=== PATIENT | male | born 1950 | race Caucasian/White ===

== ENCOUNTER 2016-08-05 15:30 | Outpatient (RCR) ==
--- NOTE | 2016-07-28 14:12 | RS.OPPTEV2 ---
Date of Note: 07/28/16 Visit #: 1 Date of Evaluation: 07/28/16 Payer Source: MEDICARE Treatment Diagnosis: Neck pain, muscle spasms History of Condition/Mechanism of Injury:: Patient reports onset of left sided neck pain around the first week of June 2016. States he does not know of any injury that would have started his symptoms. Prior Level of Function.....Patient was independent with: ADL's, Self Care, Work /Vocation, Caregiving, Ambulation/Mobility, Community Integration/Access Functional Limitations: Reaching, Pushing, Pulling, Lifting, Carrying Current Subjective/complaints:: Reports left sided neck pain and muscle spasms. States he has had pain for approximately a month. He denies tingling or numbness into the left UE, but states he does get pain towards the left shoulder. Patient states he is right handed. He plays the guitar and muro guitar, and states the strap on his left shoulder bothers him. States he sometimes plays in "[employer] sessions" for 1 1/2 to 2 hours. States he works at [employer] in the [employer], which requires a variety of activities and duties. States pain is usually worse after working. Treatment Side (optional): Left Medical History Medical History: Hypertension Smoking Status: Never smoker Hx Home Medications: Muscle relaxant at night, generic for plavix,lisinopril, simvastatin, generic for Prilosec Patient's Goals: His goal is to get relief of muscle spasms and pain. Pain Assessment - Pain Description Pain Location: left side of neck/upper traps Current Pain Intensity: 2/10 Worst Pain Intensity: 9/10 Functional Outcome Measure Neck Disability Index: 16 - G Codes & Severity Modifier G Codes & Modifier: body position current CI. body position goal CH Source of G Code score: Neck Disability index Observation - Observation Posture: Forward Head, Rounded Shoulders, Scapula Asymmetry (left scapula elevated) Comments: Demonstrates head tilted to the left at rest. Handedness: Right - ROM Comments: Cervical AROM is WFL's in all directions. Patient reports rotation to the left increases left sided neck pain. Rotation to the right eases his pain. States prolonged neck flexion causes increased pain. Demonstrates bilateral UE AROM WFL's. - Strength Comments: 5/5 throughout bilateral UE's. Fabrication Mig Welder Strength Left Hand Fabrication Mig Welder Strength: 79 lbs. Right Hand Fabrication Mig Welder Strength: 72 lbs. Dynamometer Testing Position: 2nd Position Palpation Comments:: Patient demonstrates marked muscle guarding along the left upper traps. Minimal to moderate muscle guarding along bilateral cervical paraspinals. Exhibits minimal to moderate muscle guarding along the left middle traps, along the medial border of the scapula. Reports no significant tenderness with moderate pressure throughout the cervical paraspinals or upper traps. Sensation - Sensation Right Upper Extremity: Intact/Normal Left Upper Extremity: Intact/Normal Interventions - Exercise/Activities/Manual Therapy Exercises/Activities: Patient instructed in stretching into cervical rotation and lateral flexion, and scapular retraction and depression for HEP. Manual Therapy: DTM to left upper traps, middle traps, and cervical paraspinals X 14 mins to reduce muscle tone. HOME EXERCISE PROGRAM: stretching into cervical rotation and lateral flexion, and scapular retraction and depression - Charges Total Direct Minutes: 55 mins Total Treatment Time: 55 mins Procedures billed for this date of service:: ТАТЬЯНА [place], manual therapy Assessment Assessment: Patient presents to therapy with a diagnosis of cervicalgia and trapezium muscle spasm. He exhibits marked muscle guarding along the left upper traps and increased tone along the cervical paraspinals and middle traps. He reports pain with activities at work and with playing his guitar or muro. He will benefit from modalities and manual therapy to reduce his muscle spasms/ guarding and stretching and postural exercises to reduce his pain with activities. Patient Education: Education of diagnosis, Body/Joint mechanics, Home Exercise Program, Education of Plan of Care Rehab Potential: Good Short Term Goals Goal #1: Patient independent in basic HEP. Goal to be met by: 08/11/16 Goal #2: Muscle guarding at left upper traps decreased to minimal. Goal to be met by: 08/11/16 Goal #3: Cervical AROM WFL's with minimal to no pain. Goal to be met by: 08/11/16 Production Supply Equipment Tender Goals Goal #1: Patient knows HEP and to continue ex's to maintain functional level at D/C. Goal to be met by: 09/01/16 Goal #2: Score on Neck Disability index improved to 0. Goal to be met by: 09/01/16 Goal #3: Pt to perform all work and recreational activities with minimal neck pain. Goal to be met by: 09/01/16 Goal #4: Pt to demonstrate good postural awareness. Goal to be met by: 09/01/16 Plan - Treatment to be Provided Procedures: Therapeutic Exercises, Therapeutic Activity, Manual Therapy, Patient Education Modalities: Electrical Stimulation, Ultrasound/Phonophoresis, Cryotherapy, Hot Packs, Mechanical Traction (Cervical) - Treatment Plan Frequency: 2 X week Duration: 4 weeks ORDER # VISITS AND/OR THROUGH DATE: 09/01/16 - Treatment Code (1) Cervicalgia Comments: M54.2 (2) Trapezius muscle spasm Comments: M62.838
--- NOTE | 2016-07-31 16:36 | RS.OPPTDN ---
Subjective Date of Note: 07/31/16 Visit #: 2 Date of Evaluation: 07/28/16 Payer Source: MEDICARE Treatment Diagnosis: Neck pain, muscle spasms Current Subjective/complaints:: Mr. Solares states he did really well following his treatment. States since the first visit, he had to carry some heavy pipes at work, which has aggravated his neck pain. States he has not had a lot of time to do his stretches. He has tried them a little. States he is going to play [employer]. Says he will try playing mostly in sitting to take stress off the neck and shoulders. Pain Assessment - Pain Description Pain Location: left side of neck/upper traps Current Pain Intensity: 2/10 - Treatment Modality: Ultrasound Parameters/Method Applied: 1.8 w/cm2 continuous X 10 mins to left upper traps, left cervical paraspinals, and along medial border of the left scapula. Patient Position: Sitting - Heat/Cryotherapy Treatment: Hot Pack (X 20 mins) Interventions - Exercise/Activities/Manual Therapy Exercises/Activities: Discussed body mechanics while playing guitar. Manual Therapy: DTM to left upper traps, middle traps, and cervical paraspinals X 21 mins to reduce muscle tone. HOME EXERCISE PROGRAM: stretching into cervical rotation and lateral flexion, and scapular retraction and depression - Charges Total Direct Minutes: 31 mins Total Treatment Time: 51 mins Procedures billed for this date of service:: HP, US, manual therapy Assessment: Patient reports less pain after first treatment. Muscles at upper traps respond to manual therapy and ultrasound treatment today. He demonstrates the need for continued treatment and postural education to decrease muscle guarding and pain. Patient Education: Education of diagnosis, Body/Joint mechanics, Education of Plan of Care Patient demonstrates compliance with HEP?: Yes Short Term Goals Goal #1: Patient independent in basic HEP. Goal to be met by: 08/11/16 Progress towards Goal:: Progressing Goal #2: Muscle guarding at left upper traps decreased to minimal. Goal to be met by: 08/11/16 Goal #3: Cervical AROM WFL's with minimal to no pain. Goal to be met by: 08/11/16 Coremaker Floor Goals Goal #1: Patient knows HEP and to continue ex's to maintain functional level at D/C. Goal to be met by: 09/01/16 Goal #2: Score on Neck Disability index improved to 0. Goal to be met by: 09/01/16 Goal #3: Pt to perform all work and recreational activities with minimal neck pain. Goal to be met by: 09/01/16 Goal #4: Pt to demonstrate good postural awareness. Goal to be met by: 09/01/16 Plan PLAN OF CARE EXPIRES ON:: 09/01/16 ORDER # VISITS AND/OR THROUGH DATE: 09/01/16 PLAN: Continue Plan of Care
--- NOTE | 2016-08-11 14:27 | RS.OPPTDN ---
Subjective Date of Note: 08/05/16 Visit #: 3 Date of Evaluation: 07/28/16 Payer Source: MEDICARE Treatment Diagnosis: Neck pain, muscle spasms Current Subjective/complaints:: Patient says treatment seems to be helping. Reports improved neck pain, but continues with tightness. Pain Assessment - Pain Description Pain Location: left side of neck/upper traps Current Pain Intensity: 2/10 - Treatment Modality: Ultrasound Parameters/Method Applied: continuous @ 1.5 w/cm2 x 12 mins to L UT Patient Position: Sitting - Heat/Cryotherapy Treatment: Hot Pack (cervical x 20 mins in supine) Interventions - Exercise/Activities/Manual Therapy Exercises/Activities: Passive gentle stretching of SB/rotation, performs shoulder shrugs/scap adduction Manual Therapy: DTM to left upper traps, middle traps, and cervical paraspinals X 21 mins to reduce muscle tone. HOME EXERCISE PROGRAM: stretching into cervical rotation and lateral flexion, and scapular retraction and depression - Charges Total Direct Minutes: 33 Total Treatment Time: 53 Procedures billed for this date of service:: HP, US, MT Assessment: Patient demo mod muscle guarding throughout the L UT and cervical paraspinals with limited ROM. He admits improved pain level and seems to have less sensitivity to mod palpation with MT. Patient Education: Education of diagnosis, Body/Joint mechanics, Home Exercise Program, Home Safety, Activity Modification, Education of Plan of Care Patient demonstrates compliance with HEP?: Yes Short Term Goals Goal #1: Patient independent in basic HEP. Goal to be met by: 08/11/16 Progress towards Goal:: Progressing Goal #2: Muscle guarding at left upper traps decreased to minimal. Goal to be met by: 08/11/16 Goal #3: Cervical AROM WFL's with minimal to no pain. Goal to be met by: 08/11/16 Blade Bender Furnace Tender Goals Goal #1: Patient knows HEP and to continue ex's to maintain functional level at D/C. Goal to be met by: 09/01/16 Goal #2: Score on Neck Disability index improved to 0. Goal to be met by: 09/01/16 Goal #3: Pt to perform all work and recreational activities with minimal neck pain. Goal to be met by: 09/01/16 Goal #4: Pt to demonstrate good postural awareness. Goal to be met by: 09/01/16 Plan PLAN OF CARE EXPIRES ON:: 09/01/16 ORDER # VISITS AND/OR THROUGH DATE: 09/01/16 PLAN: Continue Plan of Care
== END 2016-08-06 ==
PROVIDERS: ATTEND Orthopaedic Surgery
DX: M54.2 Cervicalgia (principal); M62.838 Other muscle spasm

== ENCOUNTER 2016-09-04 15:00 | Outpatient (RCR) ==
--- NOTE | 2016-08-07 16:33 | RS.OPPTDN ---
Subjective Date of Note: 08/07/16 Visit #: 3 Date of Evaluation: 07/28/16 Payer Source: MEDICARE Treatment Diagnosis: Neck pain, muscle spasms Current Subjective/complaints:: Patient reports treatment has been helping. States he was working on a lawnmower yesterday which increased right neck muscle spasm. He asked about use of TENS unit at home and agreed to try Estim today. Pain Assessment - Pain Description Pain Location: left side of neck/upper traps Current Pain Intensity: 2/10 - Treatment Modality: Electrical Stim Unattended Parameters/Method Applied: [id number] HVGC to 80p.v. with 4 small pads to the bilateral cervical paraspinals and upper traps with HP prior to MT. Patient Position: Supine - Heat/Cryotherapy Treatment: Hot Pack ([id number] with Estim ) Interventions - Exercise/Activities/Manual Therapy Exercises/Activities: Discussed body mechanics while playing guitar. Manual Therapy: DTM to left upper traps, middle traps, and cervical paraspinals. Total minutes of Manual Therapy: 20mins HOME EXERCISE PROGRAM: stretching into cervical rotation and lateral flexion, and scapular retraction and depression - Charges Total Direct Minutes: 20mins Total Treatment Time: 40mins Procedures billed for this date of service:: HP, Estim unattended, MT Assessment: Patient responds well to treatment and feels he has increased flexibility. Patient Education: Education of diagnosis, Body/Joint mechanics, Home Exercise Program Patient demonstrates compliance with HEP?: Yes Short Term Goals Goal #1: Patient independent in basic HEP. Goal to be met by: 08/11/16 Progress towards Goal:: Progressing Goal #2: Muscle guarding at left upper traps decreased to minimal. Goal to be met by: 08/11/16 Progress towards Goal:: Progressing Goal #3: Cervical AROM WFL's with minimal to no pain. Goal to be met by: 08/11/16 Marketing Rotation Associate Goals Goal #1: Patient knows HEP and to continue ex's to maintain functional level at D/C. Goal to be met by: 09/01/16 Goal #2: Score on Neck Disability index improved to 0. Goal to be met by: 09/01/16 Goal #3: Pt to perform all work and recreational activities with minimal neck pain. Goal to be met by: 09/01/16 Goal #4: Pt to demonstrate good postural awareness. Goal to be met by: 09/01/16 Plan PLAN OF CARE EXPIRES ON:: 09/01/16 ORDER # VISITS AND/OR THROUGH DATE: 09/01/16 PLAN: Continue Plan of Care (Continue modalities and manual therapy to reduce pain and increase functional activity level.)
--- NOTE | 2016-08-14 16:48 | RS.OPPTDN ---
Subjective Date of Note: 08/11/16 Visit #: 5 Date of Evaluation: 07/28/16 Payer Source: MEDICARE Treatment Diagnosis: Neck pain, muscle spasms Current Subjective/complaints:: Patient says he tried not to work the L arm so much today and over the weekend, but had to. Says he is quite tight today to the L side of his neck. States he is off work today and has the weekend to rest up and keep his neck from being irritated/. Pain Assessment - Pain Description Pain Location: left side of neck/upper traps Current Pain Intensity: 2/10 - Treatment Modality: Ultrasound Parameters/Method Applied: continuous @ 1.6 w/cm2 x 12 mins to the L UT Patient Position: Sitting - Heat/Cryotherapy Treatment: Hot Pack (cervical x 20 mins in supine) Interventions - Exercise/Activities/Manual Therapy Exercises/Activities: Discussed body mechanics while playing guitar. Manual Therapy: DTM to left upper traps, middle traps, and cervical paraspinals. Total minutes of Manual Therapy: 16 HOME EXERCISE PROGRAM: stretching into cervical rotation and lateral flexion, and scapular retraction and depression - Charges Total Direct Minutes: 26 Total Treatment Time: 46 Procedures billed for this date of service:: hp, u/s, MT Assessment: Patient demo less muscle guarding to the L UT with smaller trigger points and less elevation to the L scap. He shows improvement with ROM including SB and rotation today. Patient Education: Education of diagnosis, Body/Joint mechanics, Home Exercise Program, Home Safety, Activity Modification, Education of Plan of Care Patient demonstrates compliance with HEP?: Yes Short Term Goals Goal #1: Patient independent in basic HEP. Goal to be met by: 08/11/16 Progress towards Goal:: Progressing Goal #2: Muscle guarding at left upper traps decreased to minimal. Goal to be met by: 08/11/16 Progress towards Goal:: Progressing Goal #3: Cervical AROM WFL's with minimal to no pain. Goal to be met by: 08/11/16 Mushroom Sorter Grader Goals Goal #1: Patient knows HEP and to continue ex's to maintain functional level at D/C. Goal to be met by: 09/01/16 Goal #2: Score on Neck Disability index improved to 0. Goal to be met by: 09/01/16 Goal #3: Pt to perform all work and recreational activities with minimal neck pain. Goal to be met by: 09/01/16 Goal #4: Pt to demonstrate good postural awareness. Goal to be met by: 09/01/16 Plan PLAN OF CARE EXPIRES ON:: 09/01/16 ORDER # VISITS AND/OR THROUGH DATE: 09/01/16 Comments:: Patient returns to ortho Thursday, August 18. He has 2 sessions remaining on current order.
--- NOTE | 2016-08-18 15:25 | RS.OPPTDN ---
Subjective Date of Note: 08/14/16 Visit #: 6 Date of Evaluation: 07/28/16 Payer Source: MEDICARE Treatment Diagnosis: Neck pain, muscle spasms Current Subjective/complaints:: Patient reports his pain has been better and he has been able to move his head more. Pain Assessment - Pain Description Pain Location: left side of neck/upper traps Current Pain Intensity: 2/10 - Treatment Modality: Ultrasound Parameters/Method Applied: continuous @ 1.5 w/cm2 x 10 mins to the L upper trap Patient Position: Sitting - Heat/Cryotherapy Treatment: Hot Pack (20 mins to the cervical region supine) Interventions - Exercise/Activities/Manual Therapy Exercises/Activities: Discussed body mechanics while playing [employer]. Manual Therapy: DTM to left upper traps, middle traps, and cervical paraspinals. Total minutes of Manual Therapy: 15 HOME EXERCISE PROGRAM: stretching into cervical rotation and lateral flexion, and scapular retraction and depression - Charges Total Direct Minutes: 25 Total Treatment Time: 45 Procedures billed for this date of service:: hp, u/s, MT Patient Education: Education of diagnosis, Body/Joint mechanics, Home Exercise Program, Home Safety, Activity Modification, Education of Plan of Care Patient demonstrates compliance with HEP?: Yes Short Term Goals Goal #1: Patient independent in basic HEP. Goal to be met by: 08/11/16 Progress towards Goal:: Progressing Goal #2: Muscle guarding at left upper traps decreased to minimal. Goal to be met by: 08/11/16 Progress towards Goal:: Progressing Goal #3: Cervical AROM WFL's with minimal to no pain. Goal to be met by: 08/11/16 Production Control Specialist Goals Goal #1: Patient knows HEP and to continue ex's to maintain functional level at D/C. Goal to be met by: 09/01/16 Goal #2: Score on Neck Disability index improved to 0. Goal to be met by: 09/01/16 Goal #3: Pt to perform all work and recreational activities with minimal neck pain. Goal to be met by: 09/01/16 Goal #4: Pt to demonstrate good postural awareness. Goal to be met by: 09/01/16 Plan PLAN OF CARE EXPIRES ON:: 09/01/16 ORDER # VISITS AND/OR THROUGH DATE: 09/01/16 PLAN: Continue Plan of Care
--- NOTE | 2016-08-19 13:39 | RS.OPPTDN ---
Subjective Date of Note: 08/18/16 Visit #: 7 Date of Evaluation: 07/28/16 Payer Source: MEDICARE Treatment Diagnosis: Neck pain, muscle spasms Current Subjective/complaints:: Patient reports treatment is helping neck pain. States he doing fairly well at work with pain increasing about mid-day. Pain Assessment - Pain Description Pain Location: left side of neck/upper traps Current Pain Intensity: 2/10 - Treatment Modality: Ultrasound Parameters/Method Applied: [id number] at 1.5w/cm2 to the bilateral cervical paraspinals and upper traps prior to MT. Patient Position: Sitting - Heat/Cryotherapy Treatment: Hot Pack ([id number] to the neck prior to US and EX. Patient in supine. ) Interventions - Exercise/Activities/Manual Therapy Exercises/Activities: Began isometric cervical retraction and patient given copy to review at home. Total minutes of Exercise: 3mins Manual Therapy: DTM to left upper traps, middle traps, and cervical paraspinals. Total minutes of Manual Therapy: 12mins HOME EXERCISE PROGRAM: stretching into cervical rotation and lateral flexion, and scapular retraction and depression - Charges Total Direct Minutes: 27mins Total Treatment Time: 47mins Procedures billed for this date of service:: HP, US, MT Assessment: Patient progressing with treatment and will need to progress cervical and postural strengthening. Patient Education: Education of diagnosis, Body/Joint mechanics, Home Exercise Program, Activity Modification Patient demonstrates compliance with HEP?: Yes Short Term Goals Goal #1: Patient independent in basic HEP. Goal to be met by: 08/11/16 Progress towards Goal:: Progressing Goal #2: Muscle guarding at left upper traps decreased to minimal. Goal to be met by: 08/11/16 Progress towards Goal:: Progressing Goal #3: Cervical AROM WFL's with minimal to no pain. Goal to be met by: 08/11/16 Correction Goals Goal #1: Patient knows HEP and to continue ex's to maintain functional level at D/C. Goal to be met by: 09/01/16 Goal #2: Score on Neck Disability index improved to 0. Goal to be met by: 09/01/16 Goal #3: Pt to perform all work and recreational activities with minimal neck pain. Goal to be met by: 09/01/16 Progress towards goal: Progressing Goal #4: Pt to demonstrate good postural awareness. Goal to be met by: 09/01/16 Progress towards goal: Progressing Plan PLAN OF CARE EXPIRES ON:: 09/01/16 ORDER # VISITS AND/OR THROUGH DATE: 09/01/16 PLAN: Continue Plan of Care
--- NOTE | 2016-08-27 08:57 | RS.OPPTDN ---
Subjective Date of Note: 08/26/16 Visit #: 9 Date of Evaluation: 07/28/16 Payer Source: MEDICARE Treatment Diagnosis: Neck pain, muscle spasms Current Subjective/complaints:: Patient says he can turn his neck much further and has less pain with work duties. Reports he is able to lift his L shoulder better. He said he had to work outside for ~45 mins today and is tired. Pain Assessment - Pain Description Pain Location: left side of neck/upper traps Current Pain Intensity: 2/10 - Treatment Modality: Ultrasound Parameters/Method Applied: continuous @ 1.5 w/cm2 and half the time @ 3.3mHz x 12 mins to bilateral UT Patient Position: Sitting - Heat/Cryotherapy Treatment: Hot Pack (cervical in supine x 20 mins) Interventions - Exercise/Activities/Manual Therapy Exercises/Activities: Continued with isometric cervical retraction along with cervical stretching of SB and rotation. Total minutes of Exercise: 6 Manual Therapy: DTM to left upper traps, middle traps, and cervical paraspinals. Total minutes of Manual Therapy: 15 HOME EXERCISE PROGRAM: stretching into cervical rotation and lateral flexion, and scapular retraction and depression - Charges Total Direct Minutes: 33 Total Treatment Time: 53 Procedures billed for this date of service:: hp, u/s, MT Assessment: Improved ROM regarding SB and rotation to the R. Improved pain level and muscle guarding. He presents with smaller and less sensitive trigger point in L UT. Patient Education: Education of diagnosis, Body/Joint mechanics, Home Exercise Program, Home Safety, Activity Modification, Education of Plan of Care Patient demonstrates compliance with HEP?: Yes Short Term Goals Goal #1: Patient independent in basic HEP. Goal to be met by: 08/11/16 Progress towards Goal:: Progressing Goal #2: Muscle guarding at left upper traps decreased to minimal. Goal to be met by: 08/11/16 Progress towards Goal:: Progressing Goal #3: Cervical AROM WFL's with minimal to no pain. Goal to be met by: 08/11/16 Progress towards Goal:: Progressing Industrial Cafeteria Manager Goals Goal #1: Patient knows HEP and to continue ex's to maintain functional level at D/C. Goal to be met by: 09/01/16 Goal #2: Score on Neck Disability index improved to 0. Goal to be met by: 09/01/16 Goal #3: Pt to perform all work and recreational activities with minimal neck pain. Goal to be met by: 09/01/16 Progress towards goal: Progressing Goal #4: Pt to demonstrate good postural awareness. Goal to be met by: 09/01/16 Progress towards goal: Progressing Plan PLAN OF CARE EXPIRES ON:: 09/01/16 ORDER # VISITS AND/OR THROUGH DATE: 09/01/16 PLAN: Continue Plan of Care
--- NOTE | 2016-08-27 09:02 | RS.OPPTDN ---
Subjective Date of Note: 08/21/16 Visit #: 8 Date of Evaluation: 07/28/16 Payer Source: MEDICARE Treatment Diagnosis: Neck pain, muscle spasms Current Subjective/complaints:: Patient continues to say that neck pain is getting better. Says he can tell a difference in his mobility especially while driving. Pain Assessment - Pain Description Pain Location: left side of neck/upper traps Current Pain Intensity: does not rate - Treatment Modality: Ultrasound Parameters/Method Applied: continuous @ 1.5 w/cm2 x 12 mins to the bilateral UT half the time with 3.3mHz Patient Position: Sitting - Heat/Cryotherapy Treatment: Hot Pack (cervical x 20 mins in supine) Interventions - Exercise/Activities/Manual Therapy Exercises/Activities: Continued isometric cervical retraction, stretching for SB and rotation. Total minutes of Exercise: 5 Manual Therapy: DTM to left upper traps, middle traps, and cervical paraspinals. Cross stretching. Total minutes of Manual Therapy: 15 HOME EXERCISE PROGRAM: stretching into cervical rotation and lateral flexion, and scapular retraction and depression - Charges Total Direct Minutes: 32 Total Treatment Time: 52 Procedures billed for this date of service:: hp, u/s, MT Patient Education: Education of diagnosis, Body/Joint mechanics, Home Exercise Program, Home Safety, Activity Modification, Education of Plan of Care Patient demonstrates compliance with HEP?: Yes Short Term Goals Goal #1: Patient independent in basic HEP. Goal to be met by: 08/11/16 Progress towards Goal:: Progressing Goal #2: Muscle guarding at left upper traps decreased to minimal. Goal to be met by: 08/11/16 Progress towards Goal:: Progressing Goal #3: Cervical AROM WFL's with minimal to no pain. Goal to be met by: 08/11/16 Linter Saw Sharpener Goals Goal #1: Patient knows HEP and to continue ex's to maintain functional level at D/C. Goal to be met by: 09/01/16 Goal #2: Score on Neck Disability index improved to 0. Goal to be met by: 09/01/16 Goal #3: Pt to perform all work and recreational activities with minimal neck pain. Goal to be met by: 09/01/16 Progress towards goal: Progressing Goal #4: Pt to demonstrate good postural awareness. Goal to be met by: 09/01/16 Progress towards goal: Progressing Plan PLAN OF CARE EXPIRES ON:: 09/01/16 ORDER # VISITS AND/OR THROUGH DATE: 09/01/16 PLAN: Continue Plan of Care
--- NOTE | 2016-09-02 16:51 | RS.OPPTDN ---
Subjective Date of Note: 09/02/16 Visit #: 11 Date of Evaluation: 07/28/16 Payer Source: MEDICARE Treatment Diagnosis: Neck pain, muscle spasms Current Subjective/complaints:: Patient says he has been stretching at home and feels he can turn his neck better. Says he has been on an "arthritis" medicine since last week and also feels like it is of benefit. Reports less tenderness to the L side of the occiput and also hurts less with R rotation. Pain Assessment - Pain Description Pain Location: left side of neck/upper traps Current Pain Intensity: does not rate - Treatment Modality: US with ES (Comb.) Parameters/Method Applied: continuous @ 1.5 w/cm2 and 6 pk volts x 12 mins to bilateral UT but more focus on the L - Heat/Cryotherapy Treatment: Hot Pack (cervical x 20 mins supine) Interventions - Exercise/Activities/Manual Therapy Exercises/Activities: Continued isometric cervical retraction 2x5, shoulder shrugs, scap retraction, levator scap stretching, stretching for SB and rotation. Total minutes of Exercise: 7 Manual Therapy: DTM and trigger point work to bilateral upper traps, middle traps, and cervical paraspinals. Cross stretching. Total minutes of Manual Therapy: 15 HOME EXERCISE PROGRAM: stretching into cervical rotation and lateral flexion, and scapular retraction and depression - Charges Total Direct Minutes: 34 Total Treatment Time: 54 Procedures billed for this date of service:: hp, u/s combo, MT Assessment: Patient shows improvement with R SB and rotation without compensation from shoulders. He demo less tenderness to mod palpation and with ROM activities today. New arthritic meds may also be contributing to reduction of pain. Patient Education: Education of diagnosis, Body/Joint mechanics, Home Exercise Program, Home Safety, Activity Modification, Education of Plan of Care Patient demonstrates compliance with HEP?: Yes Short Term Goals Goal #1: Patient independent in basic HEP. Goal to be met by: 08/11/16 Progress towards Goal:: Progressing Goal #2: Muscle guarding at left upper traps decreased to minimal. Goal to be met by: 08/11/16 Progress towards Goal:: Progressing Goal #3: Cervical AROM WFL's with minimal to no pain. Goal to be met by: 08/11/16 Progress towards Goal:: Progressing Floor Director Goals Goal #1: Patient knows HEP and to continue ex's to maintain functional level at D/C. Goal to be met by: 09/16/16 Goal #2: Score on Neck Disability index improved to 0. Goal to be met by: 09/16/16 Goal #3: Pt to perform all work and recreational activities with minimal neck pain. Goal to be met by: 09/16/16 Progress towards goal: Progressing Goal #4: Pt to demonstrate good postural awareness. Goal to be met by: 09/16/16 Progress towards goal: Progressing Plan PLAN OF CARE EXPIRES ON:: 09/16/16 ORDER # VISITS AND/OR THROUGH DATE: 09/16/16 with continuation order dated x 4 more weeks PLAN: Continue Plan of Care
--- NOTE | 2016-09-03 08:59 | RS.OPPTDN ---
Subjective Date of Note: 08/28/16 Visit #: 10 Date of Evaluation: 07/28/16 Payer Source: MEDICARE Treatment Diagnosis: Neck pain, muscle spasms Current Subjective/complaints:: Patient continues to reports improvement in tightness and mentions he is taking a new "arthritic" medicine that he is hopeful with further reduce his pain. Pain Assessment - Pain Description Pain Location: L occiput Current Pain Intensity: does not rate - Treatment Modality: US with ES (Comb.) Parameters/Method Applied: continuous @ 1.5 w/cm2 and 5-6 pk volts x 12 mins bilateral UT, focus on the L Patient Position: Sitting - Heat/Cryotherapy Treatment: Hot Pack (cervical in supine x 20 mins ) Interventions - Exercise/Activities/Manual Therapy Exercises/Activities: Continued isometric cervical retraction 2x5, stretching for SB and rotation, levator scapula. Total minutes of Exercise: 6 Manual Therapy: DTM, trigger point work to left upper traps, middle traps, and cervical paraspinals. Cross stretching. Total minutes of Manual Therapy: 15 HOME EXERCISE PROGRAM: stretching into cervical rotation and lateral flexion, and scapular retraction and depression - Objective Findings Observations,measurements,etc.: Patient scores 6 or 12% impairment on Neck Index - Charges Total Direct Minutes: 33 Total Treatment Time: 53 Procedures billed for this date of service:: hp, u/s combo, MT Assessment: Patient demo improvement with Neck Index, but is in the same category. (Eval showed 8 or 16% impairment) Patient Education: Education of diagnosis, Body/Joint mechanics, Home Exercise Program, Home Safety, Activity Modification, Education of Plan of Care Patient demonstrates compliance with HEP?: Yes Short Term Goals Goal #1: Patient independent in basic HEP. Goal to be met by: 08/11/16 Progress towards Goal:: Progressing Goal #2: Muscle guarding at left upper traps decreased to minimal. Goal to be met by: 08/11/16 Progress towards Goal:: Progressing Goal #3: Cervical AROM WFL's with minimal to no pain. Goal to be met by: 08/11/16 Progress towards Goal:: Progressing Longterm Goals Goal #1: Patient knows HEP and to continue ex's to maintain functional level at D/C. Goal to be met by: 09/16/16 Progress towards goal: Progressing Goal #2: Score on Neck Disability index improved to 0. Goal to be met by: 09/16/16 Progress towards goal: Progressing Comments: 6 Goal #3: Pt to perform all work and recreational activities with minimal neck pain. Goal to be met by: 09/16/16 Progress towards goal: Progressing Goal #4: Pt to demonstrate good postural awareness. Goal to be met by: 09/16/16 Progress towards goal: Progressing Plan PLAN OF CARE EXPIRES ON:: 09/16/16 ORDER # VISITS AND/OR THROUGH DATE: 09/16/16, continued order x 2-3 more weeks dated 08/19/16 PLAN: Continue Plan of Care (continue trying u/s combo to verify results)
--- NOTE | 2016-09-04 16:35 | RS.OPPTDN ---
Subjective Date of Note: 09/04/16 Visit #: 12 Date of Evaluation: 07/28/16 Payer Source: MEDICARE Treatment Diagnosis: Neck pain, muscle spasms Current Subjective/complaints:: Pleased with his progress,feels the therapy is helping. Pain Assessment - Pain Description Pain Location: L occiput Pain Description: Dull, Aching Current Pain Intensity: 3/10 - Heat/Cryotherapy Treatment: Hot Pack (20 mins. to cervical area,prior to manual therapy) Interventions - Exercise/Activities/Manual Therapy Exercises/Activities: Discussed HEP while receiving manual therapy. Total minutes of Exercise: 0 Manual Therapy: DTM, trigger point work to left upper traps, middle traps, and cervical paraspinals. Cross stretching. Total minutes of Manual Therapy: 25 HOME EXERCISE PROGRAM: stretching into cervical rotation and lateral flexion, and scapular retraction and depression,chin tucks - Charges Total Direct Minutes: 25 Total Treatment Time: 45 Procedures billed for this date of service:: hp,manual therapy Assessment: Patient tolertaes the manual therapy well.He has moderate increased tone in the upper traps.L greater then the R/He has good understanding of HEP, added chin tucks in supine with good return demo. Patient Education: Home Exercise Program Patient demonstrates compliance with HEP?: Yes Short Term Goals Goal #1: Patient independent in basic HEP. Goal to be met by: 08/11/16 Progress towards Goal:: Progressing Goal #2: Muscle guarding at left upper traps decreased to minimal. Goal to be met by: 08/11/16 Progress towards Goal:: Progressing Goal #3: Cervical AROM WFL's with minimal to no pain. Goal to be met by: 08/11/16 Progress towards Goal:: Progressing Outside Food Server Goals Goal #1: Patient knows HEP and to continue ex's to maintain functional level at D/C. Goal to be met by: 09/16/16 Progress towards goal: Progressing Goal #2: Score on Neck Disability index improved to 0. Goal to be met by: 09/16/16 Progress towards goal: Progressing Goal #3: Pt to perform all work and recreational activities with minimal neck pain. Goal to be met by: 09/16/16 Progress towards goal: Progressing Goal #4: Pt to demonstrate good postural awareness. Goal to be met by: 09/16/16 Progress towards goal: Progressing Plan PLAN OF CARE EXPIRES ON:: 09/16/16 ORDER # VISITS AND/OR THROUGH DATE: 09/16/16, continued order x 2-3 more weeks dated 08/19/16 PLAN: Continue Plan of Care
--- NOTE | 2016-09-04 16:36 | RS.PTSUM ---
Progress Note/Summary Date of Note: 09/04/16 Date of Evaluation: 07/28/16 Number of Visits: 10 Reporting Period for this Progress Note: 07/28/16 through 08/28/16 Current Complaints/Gains: Patient reports neck rotation is better and he has less headaches and pain. States his left shoulder also has more mobility. Objective Measurements/Presentation: Left lateral flexion and rotation increased to 75%. G Codes: body position current CI. body position goal CH Source of G Code Score: Neck disability Index 12% - Short Term Goals Goal #1: Patient independent in basic HEP. Goal to be met by: 09/06/16 Progress towards Goal:: Progressing Goal #2: Muscle guarding at left upper traps decreased to minimal. Goal to be met by: 09/06/16 Progress towards Goal:: Progressing Goal #3: Cervical AROM WFL's with minimal to no pain. Goal to be met by: 09/06/16 Progress towards Goal:: Progressing - Long-Term Goals Goal #1: Patient knows HEP and to continue ex's to maintain functional level at D/C. Goal to be met by: 09/16/16 Progress towards goal: Progressing Goal #2: Score on Neck Disability index improved to 0. Goal to be met by: 09/16/16 Progress towards goal: Progressing Goal #3: Pt to perform all work and recreational activities with minimal neck pain. Goal to be met by: 09/16/16 Progress towards goal: Progressing Goal #4: Pt to demonstrate good postural awareness. Goal to be met by: 09/16/16 Progress towards goal: Progressing - Assessment Assessment of Improvement/Progress: Mr. Solares has made good progress towards all goals. He demonstrates improved mobility of the cervical spine and reports less pain. He demonstrates potential to gain further relief of pain. He has an order from his physician for four more weeks of therapy. We would be able to justify two more weeks of skilled therapy with patient continuning HEP after D/C. - Plan Plan: Continue Plan of Care PLAN OF CARE EXPIRES ON:: 09/16/16 ORDER # VISITS AND/OR THROUGH DATE: 09/16/16, continued order x 2-3 more weeks dated 08/19/16
== END 2016-09-05 ==
PROVIDERS: ATTEND Orthopaedic Surgery
DX: M54.2 Cervicalgia (principal)

== ENCOUNTER 2016-09-15 15:30 | Outpatient (RCR) ==
--- NOTE | 2016-09-10 16:41 | RS.OPPTDN ---
Subjective Date of Note: 09/10/16 Visit #: 13 Date of Evaluation: 07/28/16 Payer Source: MEDICARE Treatment Diagnosis: Neck pain, muscle spasms Current Subjective/complaints:: Patient says that he is able to lift his L shoulder now comparable to the R. He says his neck pain is much better and feels he will do well with one more week. Pain Assessment - Pain Description Pain Location: L occiput Current Pain Intensity: 3/10 - Heat/Cryotherapy Treatment: Hot Pack (20 mins cervical in supine) Interventions - Exercise/Activities/Manual Therapy Exercises/Activities: Discussed HEP while receiving manual therapy. Cross stretching and SB/rotation stretch. Manual Therapy: DTM, trigger point work to left upper traps, middle traps, and cervical paraspinals. Cross stretching. Total minutes of Manual Therapy: 25 HOME EXERCISE PROGRAM: stretching into cervical rotation and lateral flexion, and scapular retraction and depression,chin tucks - Charges Total Direct Minutes: 25 Total Treatment Time: 45 Procedures billed for this date of service:: hp, MT2 Assessment: Patient demo significantly less muscle guarding today after trigger point work and DTM. He shows cspine ROM WFL and without pain now. He admits improved ability to get out of bed now painfree without having to modify his "normal" way. Full L shoulder flexion demonstrated and painfree. Patient Education: Education of diagnosis, Body/Joint mechanics, Home Exercise Program, Home Safety, Activity Modification, Education of Plan of Care Short Term Goals Goal #1: Patient independent in basic HEP. Goal to be met by: 09/06/16 Progress towards Goal:: Progressing Goal #2: Muscle guarding at left upper traps decreased to minimal. Goal to be met by: 09/06/16 Progress towards Goal:: Progressing Goal #3: Cervical AROM WFL's with minimal to no pain. Goal to be met by: 09/06/16 Progress towards Goal:: Progressing Hospice Physician Goals Goal #1: Patient knows HEP and to continue ex's to maintain functional level at D/C. Goal to be met by: 09/16/16 Progress towards goal: Progressing Goal #2: Score on Neck Disability index improved to 0. Goal to be met by: 09/16/16 Progress towards goal: Progressing Goal #3: Pt to perform all work and recreational activities with minimal neck pain. Goal to be met by: 09/16/16 Progress towards goal: Progressing Goal #4: Pt to demonstrate good postural awareness. Goal to be met by: 09/16/16 Progress towards goal: Progressing Plan PLAN OF CARE EXPIRES ON:: 09/16/16 ORDER # VISITS AND/OR THROUGH DATE: 09/16/16, continued order x 2-3 more weeks dated 08/19/16 PLAN: Progress Exercises
--- NOTE | 2016-09-11 16:47 | RS.OPPTDN ---
Subjective Date of Note: 09/11/16 Visit #: 14 Date of Evaluation: 07/28/16 Payer Source: MEDICARE Treatment Diagnosis: Neck pain, muscle spasms Current Subjective/complaints:: Patient says he is able to play guitar much better and without the need to reposition for comfort now. He denies problems with turning his head while driving. Pain Assessment - Pain Description Pain Location: L occiput Current Pain Intensity: 3/10 - Heat/Cryotherapy Treatment: Hot Pack (20 mins cervical in supine) Interventions - Exercise/Activities/Manual Therapy Exercises/Activities: Discussed HEP while receiving manual therapy. Cross stretching and SB/rotation stretch. Manual Therapy: DTM, trigger point work to left upper traps, middle traps, and cervical paraspinals. Cross stretching. Isometric neck retraction 2x5 and AROM for SB and rotation. Total minutes of Manual Therapy: 25 HOME EXERCISE PROGRAM: stretching into cervical rotation and lateral flexion, and scapular retraction and depression,chin tucks - Charges Total Direct Minutes: 25 Total Treatment Time: 45 Procedures billed for this date of service:: MTx2, HP Assessment: Continued improvements seen with ROM, pain, and lonnie to recreational activities/hobby. He demo decreased muscle guarding to bilateral UT. He maintains 1 active trigger point to the L UT, but lessens today with MT. Patient Education: Education of diagnosis, Body/Joint mechanics, Home Exercise Program, Home Safety, Activity Modification, Education of Plan of Care Patient demonstrates compliance with HEP?: Yes Short Term Goals Goal #1: Patient independent in basic HEP. Goal to be met by: 09/06/16 Progress towards Goal:: Met Goal #2: Muscle guarding at left upper traps decreased to minimal. Goal to be met by: 09/06/16 Progress towards Goal:: Progressing Goal #3: Cervical AROM WFL's with minimal to no pain. Goal to be met by: 09/06/16 Progress towards Goal:: Met Halfway Goals Goal #1: Patient knows HEP and to continue ex's to maintain functional level at D/C. Goal to be met by: 09/16/16 Progress towards goal: Progressing Goal #2: Score on Neck Disability index improved to 0. Goal to be met by: 09/16/16 Progress towards goal: Progressing Goal #3: Pt to perform all work and recreational activities with minimal neck pain. Goal to be met by: 09/16/16 Progress towards goal: Progressing Goal #4: Pt to demonstrate good postural awareness. Goal to be met by: 09/16/16 Progress towards goal: Progressing Plan PLAN OF CARE EXPIRES ON:: 09/16/16 ORDER # VISITS AND/OR THROUGH DATE: 09/16/16, continued order x 2-3 more weeks dated 08/19/16 PLAN: Plan for Discharge (continue 2 more visits next week and D/c with HEP) Comments:: continue 2 more sessions next week
--- NOTE | 2016-09-15 16:45 | RS.OPPTDN ---
Subjective Date of Note: 09/15/16 Visit #: 15 Date of Evaluation: 07/28/16 Payer Source: MEDICARE Treatment Diagnosis: Neck pain, muscle spasms Current Subjective/complaints:: Patient says he is able to see improved mobility of his neck especially turning to the R. He asks about using heat and vibrator massager at home as well as what he describes as a TENS unit for maintaining decreased muscle guarding. He says he may make today his final visit as he has been asked to spend time with a family member tomorrow. Pain Assessment - Pain Description Pain Location: L UT Current Pain Intensity: 05/16 - Heat/Cryotherapy Treatment: Hot Pack (20 mins cervical supine) Interventions - Exercise/Activities/Manual Therapy Exercises/Activities: Discussed HEP while receiving manual therapy. Cross stretching and SB/rotation stretch. Manual Therapy: DTM, trigger point work to left upper traps, middle traps, and cervical paraspinals. Cross stretching. Isometric neck retraction 2x5 and AROM for SB and rotation. Total minutes of Manual Therapy: 32 HOME EXERCISE PROGRAM: stretching into cervical rotation and lateral flexion, and scapular retraction and depression,chin tucks - Charges Total Direct Minutes: 32 Total Treatment Time: 52 Procedures billed for this date of service:: hp, mt2 Assessment: Patient demo only mild increase in muscle tone to the L UT with one trigger point (inactive today). Hattie mod to max pressure with palpation to trigger point. He is able to SB and rotate to the R to approx 80% of norm. Patient Education: Education of diagnosis, Body/Joint mechanics, Home Exercise Program, Home Safety, Activity Modification, Education of Plan of Care Short Term Goals Goal #1: Patient independent in basic HEP. Goal to be met by: 09/06/16 Progress towards Goal:: Met Goal #2: Muscle guarding at left upper traps decreased to minimal. Goal to be met by: 09/06/16 Progress towards Goal:: Met Goal #3: Cervical AROM WFL's with minimal to no pain. Goal to be met by: 09/06/16 Progress towards Goal:: Met Attendant Lodging Facilities Goals Goal #1: Patient knows HEP and to continue ex's to maintain functional level at D/C. Goal to be met by: 09/16/16 Progress towards goal: Progressing Goal #2: Score on Neck Disability index improved to 0. Goal to be met by: 09/16/16 Progress towards goal: Progressing Goal #3: Pt to perform all work and recreational activities with minimal neck pain. Goal to be met by: 09/16/16 Progress towards goal: Progressing Goal #4: Pt to demonstrate good postural awareness. Goal to be met by: 09/16/16 Progress towards goal: Progressing Plan PLAN OF CARE EXPIRES ON:: 09/16/16 ORDER # VISITS AND/OR THROUGH DATE: 09/16/16, continued order x 2-3 more weeks dated 08/19/16 PLAN: Plan for Discharge (Patient will let us know tomorrow sonali if he will complete final visit tomorrow)
--- NOTE | 2016-09-16 13:49 | RS.QUICKDC ---
Discharge from PT Date of Discharge: 09/15/16 Number of Visits: 14 Reason for Discharge: Patient cancelled his final visit and has completed original order plus partial continuation order to treat his cervical pain and L shoulder. He admitted significant improvement with mobility and pain. He had received moist heat, u/s, manual therapy, and therex of cspine stretching and postural strengthening. Decreased muscle guarding was evident especially on the L side. Patient sleeping better and practicing his guitar has been much easier to lonnie. See daily notes for specific information. Gcodes: Body position--Current: CI, goal: CH. Improvement within the impairment category to 8%
== END 2016-10-06 ==
PROVIDERS: ATTEND Orthopaedic Surgery
DX: M54.2 Cervicalgia (principal)

== ENCOUNTER 2017-07-03 15:30 | Outpatient (CLI) | payer OTHER ==
--- NOTE | 2017-07-03 15:52 | DI ---
EXAM: CHEST FRONTAL AND LATERAL VIEWS HISTORY: Hypoxemia. COMPARISON: 05/02/2012 FINDINGS: Heart size and mediastinal contour remain within normal limits. Lungs are hyperinflated. No acute infiltrates are seen. No vascular congestion. There is no consolidation, visible pleural fluid or pneumothorax. Bones reveal no acute fracture. IMPRESSION: No acute cardiopulmonary process.
== END 2017-07-03 15:31 | disposition home or self-care (01) ==
LOC: RAD 15:30
PROVIDERS: ATTEND Nurse Practitioner Family
DX: D64.9 Anemia, unspecified (principal); R09.02 Hypoxemia
CPT/HCPCS: 36415; 80053; 85025